=== PATIENT | male | born 1980 | race African-American/Black ===

== ENCOUNTER 2018-10-27 09:39 | Emergency (ER) | payer OTHER ==
[2018-10-27] MEDS ORDERED: Lidocaine 1% (PF) 30 ML VIAL ONE (10:00)
[2018-10-27] MEDS ORDERED: Bupivacaine 0.5% 10 ML VIAL ONE (10:00)
[2018-10-27] MEDS ORDERED: Bacitracin 1 PK ONE (10:46)
== END 2018-10-27 11:00 | disposition home or self-care (01) ==
LOC: NAV ERS 09:39
DX: S61.213A Laceration without foreign body of left middle finger without damage to nail, initial encounter (principal); I10 Essential (primary) hypertension; Z79.899 Other long term (current) drug therapy; W26.8XXA Contact with other sharp object(s), not elsewhere classified, initial encounter
CPT/HCPCS: 12001; J2001; J3490